=== PATIENT | female | born 1980 | race Caucasian/White ===

== ENCOUNTER 2020-02-16 11:54 | Emergency (ER) | payer BC, OTHER ==
[~2020-02-16 11:54] MED LIST: Iopamidol 370 76% 100 ML VIAL ONE
[2020-02-16 12:39] LABS: #Eosinphils 0.3 thou/uL (0.0-0.7); #Lymphocytes 1.4 thou/uL (1.20-3.40); #Monocytes 0.3 thou/uL (0.11-0.59); #Neutrophils 4.8 thou/uL (1.40-6.50); %Basophils 0.5 % (0.0-1.0); %Lymphocytes 20.6 % (21.0-51.0); %Monocytes 4.8 % (0.0-10.0); %Neutrophils 70.1 % (42.0-75.0); Hemoglobin 13.9 g/dL (12.0-16.0); Mean Corpuscular HGB CONC 33.1 g/dL (32.0-36.0); Mean Corpuscular Hemoglobin 28.8 pg (27.0-31.0); Mean Platelet Volume 7.8 fL (7.4-10.4); Platelet Count 223 thou/uL (130-400); RBC Distribution Width 12.3 % (11.5-14.5); Red Blood Cell (RBC) Count 4.82 mill/uL (4.20-5.40); White Blood Cell (WBC) Count 6.8 thou/uL (4.8-10.8)
--- NOTE | 2020-02-16 12:46 | RAD ---
EXAM: Single view of the chest HISTORY: Ventricular tachycardia on a treadmill stress test COMPARISON: None FINDINGS: Single view of the chest shows an enlarged cardiomediastinal silhouette. There is no eviden ce of consolidation, mass, or pleural effusion. No acute osseous abnormality. IMPRESSION: Cardiomegaly
[2020-02-16 13:09] LABS: BHCG - Serum Negative (NEGATIVE); Pregs Control Background? CLEAR/WHITE (CLR/WHITE); Pregs Control Bar Appear? YES (CONTROL BAR)
[2020-02-16 13:12] LABS: ALT (SGPT) 14 U/L (8-55); AST (SGOT) 20 U/L (5-34); Albumin 3.9 g/dL (3.5-5.0); Alkaline Phosphatase 77 U/L (40-110); Anion Gap 12 mmol/L (10-20); BUN (Urea Nitrogen) 7 mg/dL (7.0-18.7); Bilirubin, Total 0.4 mg/dL (0.2-1.2); CK (CPK) 99 U/L (29-168); Calc. Creatinine Clearance 0 mL/min (70-130); Calcium 8.5 mg/dL (7.8-10.44); Carbon Dioxide 23 mmol/L (22-29); Chloride 105 mmol/L (98-107); Estimated GFR-MDRD Greater than 90; Globulin 3.3 g/dL (2.4-3.5); Glucose 99 mg/dL (70-105); Lipase 23 U/L (8-78); Potassium 3.9 mmol/L (3.5-5.1); Protein, Total 7.2 g/dL (6.0-8.3); Sodium 136 mmol/L (136-145)
[2020-02-16 13:46] LABS: Bilirubin Negative (Negative); Blood, Urine Trace (Negative); Clarity Clear (Clear); Glucose, Urine (Dipstick) Normal (Negative); Ketone, Urine Negative (Negative); Leukocyte 250 Leu/uL (Negative); Nitrite Negative (Negative); Protein, Urine (Dipstick) 10 mg/dL (Neg-Trace); RBC/HPF 0-3 HPF (0-3); Specific Gravity, Urine 1.017 (1.002-1.036); Urobilinogen Normal mg/dL (Less than 2); pH, Urine 5.5 (5.0-9.0)
[2020-02-16 13:49] LABS: Bacteria/HPF Rare-Few HPF (None Seen)
[2020-02-16] MEDS ORDERED: Lidocaine 1% (PF) 30 ML VIAL ONE (13:58)
[2020-02-16] MEDS ORDERED: Nitroglycerin 100MG/250ML BOT 250 ML ONE (14:23)
[2020-02-16] MEDS ORDERED: Verapamil 5 MG/2 ML VIAL ONE (14:23)
[2020-02-16] MEDS ORDERED: Heparin 10,000 UNITS/ 10 ML VIAL ONE (14:23)
[2020-02-16] MEDS ORDERED: Midazolam HCl 2 mg/2 ml Vial ONE (14:32)
[2020-02-16] MEDS ORDERED: Acetaminophen/Codeine 30-300mg Tablet ONE (16:38)
[2020-02-16] MEDS ORDERED: Ondansetron PF 4 MG/2 ML Vial ONE (17:33)
--- NOTE | 2020-02-17 00:53 | DIS ---
DATE OF ADMISSION: 02/16/2020 DATE OF DISCHARGE: 02/16/2020 DATE OF PROCEDURE: 02/16/2020. INDICATION FOR PROCEDURE: 39-year-old female who complains of chest pain, had underwent a stress test today and had non-nonsustained ventricular tachycardia during the treadmill study. She was advised to undergo cardiac catheterization to rule out evidence of significant coronary artery disease. She was taken to cardiac cytology laboratory manager where she was prepped and draped in a sterile fashion, and using a right radial artery approach, she underwent a cardiac catheterization. DISCHARGE MEDICATIONS: I do not see that she is on any routine medications at this time. She is on no current medications. DISCHARGE DIAGNOSES: 1. Normal coronary arteries, normal left ventricular systolic function, episode of nonsustained ventricular tachycardia. 2. Noncardiac chest pain. FOLLOWUP: Will be with Dr. Roach in the next 1 to 2 months. PROCEDURE: Cardiac catheterization as noted above with the following results. She has normal coronary arteries and normal left ventricular systolic function. She remained stable. She will be discharged to home in approximately 3 hours. She did undergo a right radial artery approach with a cardiac catheterization and there were no complications or difficulties encountered. Job ID: [id number]
[2020-02-17 12:30] LABS: SARS-CoV-2 MS2 Positive; SARS-CoV-2 N Gene Negative; SARS-CoV-2 S Gene Negative; SARS-CoV-2 by NAA Not Detected (NotDetected); SARS-CoV-2 orf1ab Negative
== END 2020-02-16 14:28 | disposition home or self-care (01) ==
LOC: ERS 11:54
DX: R94.39 Abnormal result of other cardiovascular function study (principal); R94.31 Abnormal electrocardiogram [ECG] [EKG]; F17.210 Nicotine dependence, cigarettes, uncomplicated; I25.2 Old myocardial infarction
CPT/HCPCS: 71045; 80053; 81003; 81015; 82550; 83690; 84484; 84703; 85025; 87635; 93005; 93458; 99152; 99153; J1644; J2001; J2250; J2405; Q9967; U0003

== ENCOUNTER 2020-11-24 19:30 | Outpatient (CLI) | payer BC | END 2020-11-24 19:31 | disposition home or self-care (01) | LOC: SLEEPLAB 19:30 | PROVIDERS: ATTEND Internal Medicine Cardiovascular Disease | DX: G47.33 Obstructive sleep apnea (adult) (pediatric) (principal); R53.83 Other fatigue; R09.89 Other specified symptoms and signs involving the circulatory and respiratory systems; G47.00 Insomnia, unspecified; G47.10 Hypersomnia, unspecified; R06.83 Snoring; R35.1 Nocturia; I51.9 Heart disease, unspecified; E66.9 Obesity, unspecified; Z68.43 Body mass index [BMI] 50.0-59.9, adult | CPT/HCPCS: 95810 ==

== ENCOUNTER 2021-01-17 19:30 | Outpatient (CLI) | payer BC | END 2021-01-17 19:31 | disposition home or self-care (01) | LOC: SLEEPLAB 19:30 | PROVIDERS: ATTEND Internal Medicine Cardiovascular Disease | DX: G47.33 Obstructive sleep apnea (adult) (pediatric) (principal); R53.83 Other fatigue; R09.89 Other specified symptoms and signs involving the circulatory and respiratory systems; G47.00 Insomnia, unspecified; R35.1 Nocturia; G47.10 Hypersomnia, unspecified; R06.83 Snoring; E66.9 Obesity, unspecified; Z68.43 Body mass index [BMI] 50.0-59.9, adult | CPT/HCPCS: 95811 ==